=== PATIENT | female | born 1995 | race African-American/Black ===

== ENCOUNTER 2018-06-18 09:52 | Emergency (ER) | payer OTHER, SELFPAY ==
[2018-06-18] MEDS ORDERED: Adacel (T-DAP) 0.5 ML VIAL ONE (10:17)
== END 2018-06-18 10:35 | disposition home or self-care (01) ==
LOC: ERS 09:52
DX: S61.011A Laceration without foreign body of right thumb without damage to nail, initial encounter (principal); W26.8XXA Contact with other sharp object(s), not elsewhere classified, initial encounter
CPT/HCPCS: 90471; 90715